=== PATIENT | female | born 1940 | race American Indian/Alaskan Native ===

== ENCOUNTER 2017-08-06 23:41 | Inpatient (IN) | payer MEDICARE, MEDICAID ==
[2017-08-06 23:51] VITALS: BMI 25.4
--- NOTE | 2017-08-07 00:35 | ED PDOC ---
Arrival/HPI - General Chief Complaint: Fever Time Seen by Provider: 08/07/17 00:35 Historian: Patient, Family - History of Present Illness Narrative History of Present Illness (Text): 08/07/17 00:35 76 year old female whose past medical history includes Alzheimer and dementia, presents to the emergency department from half-way associated with family member complaining of cough that began a few days ago associated with fever that began 4-6 hours ago. Patient reports she had a fever of 101.6 at the half-way. Patient denies any ear pain, sore throat, chills, chest pain, shortness of breath, nausea, vomiting, diarrhea, urinary symptoms, back pain, neck pain, headache, dizziness, or any other complaints. Time/Duration: 4-6 hours Symptom Onset: Sudden Activities at Onset: Light Context: Home ([facility]) Past Medical History - Provider Review Nursing Documentation Reviewed: Yes - Infectious Disease Hx of Infectious Diseases: None - Tetanus Immunization Tetanus Immunization: Unknown - Cardiac Hx Hypertension: Yes - Psychiatric Hx Depression: Yes Hx Emotional Abuse: No Hx Physical Abuse: No Hx Substance Use: No - Past Surgical History Past Surgical History: No Previous - Suicidal Assessment Feels Threatened In Home Enviroment: No Family/Social History - Physician Review Nursing Documentation Reviewed: Yes Family/Social History: No Known Family HX Smoking Status: Never Smoked Hx Alcohol Use: No Hx Substance Use: No Hx Substance Use Treatment: No Allergies/Home Meds Allergies/Adverse Reactions: Allergies No Known Allergies Allergy (Verified 08/07/17 11:50) Home Medications: Home Meds Medication Instructions Recorded Confirmed Acetaminophen [Tylenol 325mg tab] 2 tab PO Q4 PRN 11/11/13 08/06/17 Magnesium Hydroxide [Milk Of 30 ml PO HS PRN 11/11/13 08/06/17 Magnesia] Multivitamin [Tab-A-Dk] 1 tab PO DAILY 11/11/13 08/06/17 Alendronate Sodium [Binosto] 70 mg PO DAILY 08/07/17 08/07/17 Amlodipine Bes/Olmesartan Med 10 mg PO MON 08/07/17 08/07/17 [Cezar 5-20 mg Tablet] Calcium Carbonate [Calcium] 500 mg PO BID 08/07/17 08/07/17 Famotidine [Pepcid] 20 mg PO DAILY 08/07/17 08/07/17 Memantine HCl 5 mg PO BID 08/07/17 08/07/17 Review of Systems - Physician Review All systems were reviewed & negative as marked: Yes - Review of Systems Constitutional: Fevers. absent: Other (Chills) ENT: absent: TMJ Pain, Sore Throat Respiratory: Cough. absent: SOB Cardiovascular: absent: Chest Pain Gastrointestinal: absent: Diarrhea, Nausea, Vomiting Genitourinary Female: absent: Dysuria, Frequency, Hematuria Musculoskeletal: absent: Back Pain, Neck Pain Neurological: absent: Headache, Dizziness Physical Exam Vital Signs Reviewed: Yes Vital Signs Temp Pulse Resp BP Pulse Ox 08/07/17 08:39 99.3 F 99 H 21 123/64 96 08/07/17 06:00 101.1 F H 101 H 16 150/66 92 L 08/07/17 04:00 103 F H 114 H 16 157/69 H 95 08/07/17 02:00 99.6 F 100 H 16 140/85 92 L 08/07/17 00:01 99.3 F 103 H 20 125/67 92 L Temperature: Afebrile Blood Pressure: Normal Pulse: Tachycardic Respiratory Rate: Normal Appearance: Positive for: Well-Appearing, Non-Toxic, Comfortable Pain Distress: None Mental Status: Positive for: other (Alert and Oriented x2) - Systems Exam Head: Present: Atraumatic, Normocephalic Pupils: Present: PERRL Extroacular Muscles: Present: EOMI Conjunctiva: Present: Normal Mouth: Present: Moist Mucous Membranes Neck: Present: Normal Range of Motion Respiratory/Chest: Present: Rhonchi (scattered Rhonchi everywhere). No: Respiratory Distress, Accessory Muscle Use Cardiovascular: Present: Regular Rate and Rhythm, Normal S1, S2. No: Murmurs Abdomen: Present: Normal Bowel Sounds. No: Tenderness, Distention, Peritoneal Signs Back: Present: Normal Inspection Upper Extremity: Present: Normal Inspection. No: Cyanosis, Edema Lower Extremity: Present: Normal Inspection. No: Edema Neurological: Present: GCS=15, CN II-XII Intact, Speech Normal Skin: Present: Warm, Dry, Normal Color. No: Rashes Psychiatric: Present: Alert, Normal Insight, Normal Concentration. No: Oriented x 3 (Oriented x2) Medical Decision Making ED Course and Treatment: 08/07/17 00:35 Impression: 76 year old female presents complaining of cough that began few days ago associated with fever that began 4-6 hours ago. Plan: -- VBG -- EKG -- Labs -- Chest X-ray -- IV Fluids -- Blood Culture -- Urine Culture -- Urinalysis -- Reassess and disposition Progress Notes: 08/07/17 02:10 EKG shows Sinus Tachycardia at 109 BPM with no changes since 10/2013 Interpreted by me. 08/07/17 02:36 CXR Impression: As read by CAT bell. - Lab Interpretations Microbiology Results: Microbiology Results 08/07/17 02:30 Blood Blood Culture - Preliminary NO GROWTH AFTER 4 DAYS 08/07/17 02:00 Blood Blood Culture - Preliminary NO GROWTH AFTER 4 DAYS 08/07/17 05:08 Urine,Clean Catch Urine Culture - Final Escherichia Coli Lab Results: 08/07/17 02:30 08/07/17 02:30 Lab Results 08/07/17 05:08: Urine Color Yellow, Urine Appearance Sl cloudy, Urine pH 6.0, Ur Specific Floyd 1.025, Urine Protein Trace H, Urine Glucose (UA) Negative, Urine Ketones Negative, Urine Blood Trace-intact H, Urine Nitrate Positive H, Urine Bilirubin Negative, Urine Urobilinogen 0.2, Ur Leukocyte Esterase Negative , Urine RBC 0 - 2, Urine WBC 0 - 2, Ur Epithelial Cells 1 - 3, Urine Bacteria Many 08/07/17 04:54: Influenza Typ A,B (EIA) Pos for influenza a H 08/07/17 02:30: Sodium 137, Chloride 103, Potassium 3.4 L, Carbon Dioxide 22, Anion Gap 16, BUN 12, Creatinine 0.9, Est GFR ( Amer) > 60, Est GFR (Non- Af Amer) > 60, Random Glucose 96, Calcium 10.9 H, Phosphorus 2.4 L, Magnesium 2.0, Total Bilirubin 0.8, AST 40 H, ALT 32, Alkaline Phosphatase 94, Total Protein 8.2, Albumin 4.2, Globulin 4.1, Albumin/Globulin Ratio 1.0 L 08/07/17 02:30: pO2 53, VBG pH 7.37, VBG pCO2 43.0, VBG HCO3 24.9, VBG Total CO2 26.2, VBG O2 Sat (Calc) 89.5 H, VBG Base Excess -0.6 L, VBG Potassium 3.5 L , Sodium 137.0, Chloride 102.0, Glucose 92, Lactate 1.5, FiO2 21.0, Venous Blood Potassium 3.5 L 08/07/17 02:30: PT 13.7 H, INR 1.20 H, APTT 31.9 08/07/17 02:30: WBC 9.3, RBC 4.76, Hgb 13.7, Hct 41.3, MCV 86.8, MCH 28.8, MCHC 33.2, RDW 15.5 H, Plt Count 266, MPV 11.0, Gran % 83.5 H, Lymph % (Auto) 6.9 L, [place] % (Auto) 9.2 H, Eos % (Auto) 0.0 L, Baso % (Auto) 0.4, Gran # 7.72 H, Lymph # 0.6 L, [place] # 0.9 H, Eos # 0.0, Baso # 0.04 I have reviewed the lab results: Yes - RAD Interpretation Radiology Orders: 08/07/17 00:58 CHEST PORTABLE [RAD] Stat - EKG Interpretation Interpreted by ED Physician: Yes Type: 12 lead EKG - Medication Orders Current Medication Orders: Discontinued Medications Acetaminophen (Tylenol 325mg Tab) 650 mg PO STAT STA Stop: 08/07/17 05:01 Last Admin: 08/07/17 06:29 Dose: Acetaminophen (Tylenol 325mg Tab) 650 mg PO Q6H PRN PRN Reason: Fever >100.4 F Last Admin: 08/09/17 18:07 Dose: 650 mg BETH Pain/Vitals Document 08/09/17 18:07 MANIL (Rec: 08/09/17 18:07 MANIL [id number]) Vitals Temperature (97.6 F-99.6 F) 99.3 F Temperature Source Oral Re-Assess: [facility] Pain/Vitals Document 08/09/17 19:07 RR (Rec: 08/09/17 20:20 RR [id number]) Pain Reassessment Is This A Pain ReAssessment? Yes Sleep Is patient sleeping during reassessment? Yes Pain Scale Used Pain Scale Used FLACC Alendronate Sodium (Fosamax) 70 mg PO Q7D@0600 [facility] Calcium Carbonate (Caltrate) 600 mg PO BID [facility] Last Admin: 08/10/17 09:54 Dose: 600 mg Cephalexin Monohydrate (Keflex) 500 mg PO BID [facility] PRN Reason: Protocol Stop: 08/16/17 10:01 Famotidine (Pepcid) 20 mg PO DAILY REPLACED BY [facility] Last Admin: 08/10/17 09:55 Dose: 20 mg Sodium Chloride (Sodium Chloride 0.9%) 1,000 mls @ 2,000 mls/hr IV .Q30M ONE Stop: 08/07/17 01:26 Last Admin: 08/07/17 01:00 Dose: 2,000 mls/hr eMAR Start Stop Document 08/07/17 01:00 AB (Rec: 08/07/17 02:44 AB [facility] [place]-[id number]) Intravenous Solution Start Date 08/07/17 Start Time 01:00 Sodium Chloride (Sodium Chloride 0.9%) 1,000 mls @ 150 mls/hr IV .Q6H40M REPLACED BY [facility] Last Admin: 08/09/17 19:52 Dose: 150 mls/hr eMAR Start Stop Document 08/09/17 19:52 MANIL (Rec: 08/09/17 19:53 MANIL [id number]) Intravenous Solution Start Date 08/09/17 Start Time 19:52 End Date 08/10/17 Ceftriaxone Sodium (Rocephin 1 Gram Ivpb) 1 gm in 100 mls @ 200 mls/hr IVPB STAT STA PRN Reason: Protocol Stop: 08/07/17 07:07 Last Admin: 08/07/17 08:08 Dose: 200 mls/hr eMAR Start Stop Document 08/07/17 08:08 LA (Rec: 08/07/17 08:08 LA [id number]) Intravenous Solution Start Date 08/07/17 Start Time 08:08 End Date 08/07/17 End time 08:38 Total Infusion Time 30 Ceftriaxone Sodium (Rocephin 1 Gram Ivpb) 1 gm in 100 mls @ 100 mls/hr IVPB DAILY [facility] PRN Reason: Protocol Last Admin: 08/09/17 10:33 Dose: 100 mls/hr eMAR Start Stop Document 08/09/17 10:33 MANIL (Rec: 08/09/17 10:33 MANIL [id number]) Intravenous Solution Start Date 08/09/17 Start Time 10:33 End Date 08/09/17 End time 11:33 Total Infusion Time 60 Cefepime HCl (Maxipime 1gm) 1 gm in 100 mls @ 100 mls/hr IVPB Q12 [facility] PRN Reason: Protocol Last Admin: 08/10/17 09:55 Dose: 100 mls/hr eMAR Start Stop Document 08/10/17 09:55 LO (Rec: 08/10/17 09:55 LO [id number]) Intravenous Solution Start Date 08/10/17 Start Time 09:55 Magnesium Hydroxide (Milk Of Magnesia) 30 ml PO HS PRN PRN Reason: Constipation Memantine (Namenda) 5 mg PO DAILY [facility] Last Admin: 08/10/17 09:55 Dose: 5 mg Multivitamins (Thera Tab) 1 tab PO 0800 [facility] Last Admin: 08/10/17 09:55 Dose: 1 tab Oseltamivir Phosphate (Tamiflu Cap) 75 mg PO ONCE ONE PRN Reason: Protocol Stop: 08/07/17 06:35 Last Admin: 08/07/17 07:09 Dose: 75 mg Oseltamivir Phosphate (Tamiflu Cap) 75 mg PO BID [facility] PRN Reason: Protocol Stop: 08/12/17 16:12 Last Admin: 08/10/17 09:55 Dose: 75 mg Pneumococcal Polyvalent Vaccine (Pneumovax 23 Vaccine) 0.5 ml IM .ONCE ONE Stop: 08/07/17 14:15 Potassium Chloride (K-Dur 20 Meq Er Tab) 20 meq PO DAILY REPLACED BY [facility] Potassium Chloride (K-Dur 20 Meq Er Tab) 20 meq PO ONCE ONE Stop: 08/07/17 18:40 Last Admin: 08/07/17 18:44 Dose: 20 meq Potassium Chloride (K-Dur 20 Meq Er Tab) 20 meq PO BRK REPLACED BY [facility] Last Admin: 08/10/17 08:55 Dose: 20 meq - Scribe Statement The provider has reviewed the documentation as recorded by the [place] [facility] Provider Osvaldoibe Attestation: All medical record entries made by the Osvaldoibmonica were at my direction and personally dictated by me. I have reviewed the chart and agree that the record accurately reflects my personal performance of the history, physical exam, medical decision making, and the department course for this patient. I have also personally directed, reviewed, and agree with the discharge instructions and disposition. Disposition/Present on Arrival - Present on Arrival Any Indicators Present on Arrival: No History of DVT/PE: No History of Uncontrolled Diabetes: No Urinary Catheter: No History of Decub. Ulcer: No History Surgical Site Infection Following: None - Disposition Have Diagnosis and Disposition been Completed?: Yes Diagnosis: Influenza A, UTI (urinary tract infection) Disposition: HOSPITALIZED Disposition Time: 06:40 (Dr. Refugio SEQUEIRA) Patient Plan: Admission Condition: GOOD
[2017-08-07] MEDS ORDERED: Sodium Chloride 0.9% 1,000 ML IV ONE (00:57)
[2017-08-07] MEDS: Sodium Chloride 0.9% 1,000 ML IV SCH ×3 (02:44→22:51)
[2017-08-07 02:51] LABS: BASO # 0.04 K/mm3 (0.0-2.0); BASO % 0.4 % (0.0-3.0); GRAN # 7.72 (1.4-6.5); GRAN % 83.5 % (50.0-68.0); HEMOGLOBIN 13.7 g/dL (12.0-16.0); LYMPH # 0.6 (1.2-3.4); LYMPH % 6.9 % (22.0-35.0); MEAN CELL VOLUME 86.8 fl (80.0-105.0); MEAN CORPUSCULAR HEMOGLOBIN 28.8 pg (25.0-35.0); MEAN CORPUSCULAR HGB CONC 33.2 g/dl (31.0-37.0); MONO # 0.9 (0.1-0.6); MONO % 9.2 % (1.0-6.0); RBC 4.76 10^6/uL (3.5-6.1); RED CELL DISTRIBUTION WIDTH 15.5 % (11.5-14.5); WHITE BLOOD COUNT 9.3 10^3/ul (4.5-11.0)
[2017-08-07 02:57] LABS: INR 1.2 (0.93-1.08); PARTIAL THROMBOPLASTIN TIME 31.9 Seconds (25.1-36.5); PROTHROMBIN TIME 13.7 SECONDS (9.4-12.5)
[2017-08-07 03:00] LABS: ALBUMIN 4.2 g/dL (3.0-4.8); ALT/SGPT 32 U/L (7-56); AST/SGOT 40 U/L (14-36); BLOOD UREA NITROGEN 12 mg/dL (7-21); CALCIUM 10.9 mg/dL (8.4-10.5); GFR AFRICAN-AMERICAN > 60; GFR NON-AFRICAN AMERICAN > 60
[2017-08-07 03:30] LABS: VENOUS BLOOD GAS BASE EXCESS -0.6 mmol/L (0.0-2.0); VENOUS BLOOD GAS PO2 53 mm/Hg (30-55); VENOUS BLOOD PH 7.37 (7.32-7.43)
[2017-08-07 05:56] LABS: URINE BILIRUBIN NEGATIVE (NEGATIVE); URINE BLOOD TRACE-INTACT (NEGATIVE); URINE GLUCOSE (UA) NEGATIVE (NEGATIVE); URINE LEUKOCYTE ESTERASE NEGATIVE Leu/uL (NEGATIVE); URINE NITRATE POSITIVE (NEGATIVE); URINE PROTEIN TRACE mg/dL (<30 mg/dL); URINE UROBILINOGEN 0.2 E.U./dL (<1 E.U./dL)
[2017-08-07 06:15] LABS: URINE APPEARANCE SL CLOUDY (CLEAR); URINE COLOR YELLOW (YELLOW)
[2017-08-07 06:16] LABS: URINE RBC 0 - 2 /hpf (0-2); URINE WBC 0 - 2 /hpf (0-6)
[2017-08-07 06:17] LABS: URINE BACTERIA MANY (NEG)
[2017-08-07] MEDS ORDERED: cefTRIAXone 1 gm 1 GM/100 ML BAG IVPB STA (06:38)
--- NOTE | 2017-08-07 09:59 | RAD ---
HISTORY: Sepsis patient. Portable study 01:29 COMPARISON: No prior. FINDINGS: LUNGS: No active pulmonary disease. PLEURA: No significant pleural effusion identified, no pneumothorax apparent. CARDIOVASCULAR: No radiographic findings to suggest acute or significant cardiovascular disease. OSSEOUS STRUCTURES: No significant abnormalities. VISUALIZED UPPER ABDOMEN: Normal. OTHER FINDINGS: None. IMPRESSION: No active disease.
--- NOTE | 2017-08-07 12:46 | CP.PCM.HP ---
<Valorie Peralta - Last Filed: 08/07/17 23:04> History of Present Illness - History of Present Illness History of Present Illness: 76 yr female from [facility] w/ history of Paranoid Schizophrenia, Dementia, Osteoporosis, GERD, HTN, Osteoarthritis, DJD, Onychomycosis, PVD, and cataracts. Pt was sent to ED for cough that began a few days ago and fever. Temperature of 101.6 at the half-way. Patient denies any ear pain, sore throat, chills, chest pain, shortness of breath, nausea, vomiting, diarrhea, urinary symptoms, back pain, neck pain, headache, dizziness , or any other complaints. Present on Admission - Present on Admission Any Indicators Present on Admission: No History of DVT/PE: No History of Uncontrolled Diabetes: No Urinary Catheter: No Decubitus Ulcer Present: No Review of Systems - Review of Systems Systems not reviewed;Unavailable: Dementia - Constitutional Constitutional: As Per HPI - EENT Eyes: As Per HPI Ears: As Per HPI Nose/Mouth/Throat: As Per HPI - Breasts Breasts: As Per HPI - Cardiovascular Cardiovascular: As Per HPI - Respiratory Respiratory: As Per HPI - Gastrointestinal Gastrointestinal: As Per HPI - Genitourinary Genitourinary: As Per HPI - Menstruation Menstruation: As Per HPI - Musculoskeletal Musculoskeletal: As Per HPI - Integumentary Integumentary: As Per HPI - Neurological Neurological: As Per HPI - Psychiatric Psychiatric: As Per HPI - Endocrine Endocrine: As Per HPI - Hematologic/Lymphatic Hematologic: As Per HPI Past Patient History - Infectious Disease Hx of Infectious Diseases: None - Tetanus Immunizations Tetanus Immunization: Unknown - Past Medical History & Family History Past Family History: Reviewed and not pertinent - Past Social History Smoking Status: Never Smoked - CARDIAC Hx Hypertension: Yes - PSYCHIATRIC Hx Depression: Yes Hx Emotional Abuse: No Hx Physical Abuse: No Hx Substance Use: No Meds Allergies/Adverse Reactions: Allergies Allergy/AdvReac Type Severity Reaction Status Date / Time No Known Allergies Allergy Verified 08/07/17 11:50 Physical Exam - Constitutional Appears: Chronically Ill - Head Exam Head Exam: ATRAUMATIC, NORMAL INSPECTION, NORMOCEPHALIC - Eye Exam Eye Exam: EOMI, Normal appearance, PERRL - ENT Exam ENT Exam: Mucous Membranes Dry - Neck Exam Neck exam: Positive for: Normal Inspection - Respiratory Exam Respiratory Exam: Clear to Auscultation Bilateral, NORMAL BREATHING PATTERN - Cardiovascular Exam Cardiovascular Exam: REGULAR RHYTHM - GI/Abdominal Exam GI & Abdominal Exam: Normal Bowel Sounds, Soft. absent: Tenderness - Extremities Exam Extremities exam: Positive for: normal inspection - Back Exam Back exam: NORMAL INSPECTION - Neurological Exam Neurological exam: Alert, Oriented x3 - Psychiatric Exam Psychiatric exam: Normal Affect, Normal Mood - Skin Skin Exam: Dry, Intact, Normal Color, Warm Results - Vital Signs Recent Vital Signs: Last Vital Signs Temp 99.3 F 08/07/17 08:39 Pulse 99 H 08/07/17 08:39 Resp 21 08/07/17 08:39 BP 123/64 08/07/17 08:39 Pulse Ox 96 08/07/17 08:39 - Labs Result Diagrams: 08/07/17 02:30 08/07/17 02:30 Assessment & Plan (1) Hypokalemia Status: Acute (2) Hypercalcemia Status: Acute (3) Abnormal LFTs (liver function tests) Status: Acute (4) Proteinuria Status: Acute (5) Influenza A Status: Acute (6) UTI (urinary tract infection) Status: Acute (7) Hypophosphatemia Status: Acute - Assessment and Plan (Free Text) Plan: Isolation Precautions in place. Labs: CBC, BMP. PT/OT, social welfare administrator on board. GI/VTE prophlyaxis. IV abx rochephin. IV antiviral tamiflu. Blood cultures final results pending. Consult: ID - Dr. Velazquez = Influenza A positive. Started on Tamiflu. Requires 5 days of Tamiflu treatment. For UTI, Rocephin 1gm IV daily until culture results return. Reviewed: CXR = WNL ECG = ST, possible L atrial enlargement, BORDERLINE ECG - Date & Time Date: 08/07/17 Time: 11:40 <Asuncion Rob - Last Filed: 08/08/17 15:07> Results - Vital Signs Recent Vital Signs: Last Vital Signs Temp 99.2 F 08/08/17 08:04 Pulse 85 08/08/17 08:04 Resp 20 08/08/17 08:04 BP 100/56 L 08/08/17 08:04 Pulse Ox 94 L 08/08/17 08:04 - Labs Result Diagrams: 08/07/17 02:30 08/07/17 02:30 Assessment & Plan - Assessment and Plan (Free Text) Plan: 76 yr female from [facility] w/ history of Paranoid Schizophrenia, Dementia, Osteoporosis, GERD, HTN, Osteoarthritis, DJD, Onychomycosis, PVD, and cataracts. Pt was sent to ED for cough that began a few days ago and fever. Temperature of 101.6 at the half-way. Patient denies any ear pain, sore throat, chills, chest pain, shortness of breath, nausea, vomiting, diarrhea, urinary symptoms, back pain, neck pain, headache, dizziness , or any other complaints.this is our private pt from [facility] , all above noted , agreed all above , chart noted . agreed with above treatment
[2017-08-07] MEDS ORDERED: Pneumococcal 23-Valent Vaccine IM ONE (14:14)
[2017-08-07] MEDS ORDERED: Influenza Vaccine 60 mcg/0.5 mL SYR (4YR UP) IM ONE (14:14)
[2017-08-07] MEDS ORDERED: Potassium Chloride 20 mEq ER Tab PO ONE (18:39)
--- NOTE | 2017-08-07 19:04 | CP.PCM.CON ---
History of Present Illness - History of Present Illness History of Present Illness: Infectious Disease Consultation: August 07, 2017 76 yo female with cough and fever at intermediate. Fever as high as 101.6 F at intermediate. Fever of 103.0 F here at [facility]. Patient tested positive for Influenza A. Started on Tamiflu for treatment at this time. The patient placed under respiratory isolation. Patient does have a history of Dementia and Alzheimer's. PMHx: Paranoid Schizophrenia, Dementia, Osteoporosis, GERDs, HTN, Osteoarthritis, DJD , Onychomycosis, PVD, Cataracts. PSHx: none given Allergies: NKDA Social Hx: No tobacco, EtOH, or illicit drug use [facility] resident at [facility]. Active Medications Acetaminophen (Tylenol 325mg Tab) 650 mg PO Q6H PRN PRN Reason: Fever >100.4 F Last Admin: 08/07/17 16:58 Dose: 650 mg Alendronate Sodium (Fosamax) 70 mg PO Q7D@0600 [facility] Calcium Carbonate (Caltrate) 600 mg PO BID [facility] Last Admin: 08/07/17 17:00 Dose: 600 mg Famotidine (Pepcid) 20 mg PO DAILY [facility] Sodium Chloride (Sodium Chloride 0.9%) 1,000 mls @ 150 mls/hr IV .Q6H40M [facility] Last Admin: 08/07/17 09:11 Dose: 150 mls/hr Magnesium Hydroxide (Milk Of Magnesia) 30 ml PO HS PRN PRN Reason: Constipation Memantine (Namenda) 5 mg PO DAILY [facility] Multivitamins (Thera Tab) 1 tab PO 0800 [facility] Oseltamivir Phosphate (Tamiflu Cap) 75 mg PO BID [facility] PRN Reason: Protocol Stop: 08/12/17 16:12 Last Admin: 08/07/17 17:00 Dose: 75 mg Potassium Chloride (K-Dur 20 Meq Er Tab) 20 meq PO DAILY [facility] Family Hx: none given ROS: Fevers, chills, cough No chest pain, abdominal pain, melena, hematuria, hematemesis, hematochezia, depression, anxiety. Most information taken from chart and intermediate records. Past Patient History - Infectious Disease Hx of Infectious Diseases: None - Tetanus Immunizations Tetanus Immunization: Unknown - Past Social History Smoking Status: Former Smoker - CARDIAC Hx Cardiac Disorders: Yes Hx Hypertension: Yes - PULMONARY Hx Respiratory Disorders: Yes (INFLUENZA A 1-8-18,H/O OF SMOKING CIGARETTES.) - NEUROLOGICAL Hx Neurological Disorder: Yes Hx Dementia: Yes (ALZHEIMER'S) - HEENT Hx HEENT Problems: No - RENAL Hx Chronic Kidney Disease: No - ENDOCRINE/METABOLIC Hx Endocrine Disorders: No - HEMATOLOGICAL/ONCOLOGICAL Hx Blood Disorders: No - INTEGUMENTARY Hx Dermatological Problems: No - MUSCULOSKELETAL/RHEUMATOLOGICAL Hx Musculoskeletal Disorders: Yes Hx Degenerative Joint Disease: Yes Hx Falls: No (NONE NOTED.) Hx Osteoarthritis: Yes Hx Unsteady Gait: Yes (WALKER WHEELCHAIR) - GASTROINTESTINAL Hx Gastrointestinal Disorders: Yes (ESOPHAGITIS,APPENDECTOMY) Hx Gastroesophageal Reflux: Yes - GENITOURINARY/GYNECOLOGICAL Hx Genitourinary Disorders: No Hx Urinary Tract Infection: Yes - PSYCHIATRIC Hx Psychophysiologic Disorder: Yes Hx Depression: Yes Hx Emotional Abuse: No Hx Physical Abuse: No Hx Substance Use: No - SURGICAL HISTORY Hx Surgeries: Yes Hx Appendectomy: Yes Meds Allergies/Adverse Reactions: Allergies Allergy/AdvReac Type Severity Reaction Status Date / Time No Known Allergies Allergy Verified 08/07/17 11:50 - Medications Medications: Current Medications Acetaminophen (Tylenol 325mg Tab) 650 mg PO Q6H PRN PRN Reason: Fever >100.4 F Last Admin: 08/07/17 16:58 Dose: 650 mg Alendronate Sodium (Fosamax) 70 mg PO Q7D@0600 [facility] Calcium Carbonate (Caltrate) 600 mg PO BID [facility] Last Admin: 08/07/17 17:00 Dose: 600 mg Famotidine (Pepcid) 20 mg PO DAILY [facility] Sodium Chloride (Sodium Chloride 0.9%) 1,000 mls @ 150 mls/hr IV .Q6H40M [facility] Last Admin: 08/07/17 09:11 Dose: 150 mls/hr Magnesium Hydroxide (Milk Of Magnesia) 30 ml PO HS PRN PRN Reason: Constipation Memantine (Namenda) 5 mg PO DAILY [facility] Multivitamins (Thera Tab) 1 tab PO 0800 [facility] Oseltamivir Phosphate (Tamiflu Cap) 75 mg PO BID [facility] PRN Reason: Protocol Stop: 08/12/17 16:12 Last Admin: 08/07/17 17:00 Dose: 75 mg Physical Exam - Constitutional Appears: Non-toxic, No Acute Distress, Chronically Ill - Head Exam Head Exam: ATRAUMATIC, NORMOCEPHALIC - Eye Exam Eye Exam: EOMI, PERRL Pupil Exam: NORMAL ACCOMODATION - ENT Exam ENT Exam: Mucous Membranes Moist, Normal External Ear Exam, TM's Normal Bilaterally - Neck Exam Neck exam: Positive for: Full Rom, Normal Inspection - Respiratory Exam Respiratory Exam: Clear to Auscultation Bilateral, NORMAL BREATHING PATTERN. absent: Rales, Rhonchi, Wheezes - Cardiovascular Exam Cardiovascular Exam: REGULAR RHYTHM, RRR, +S1, +S2 - GI/Abdominal Exam GI & Abdominal Exam: Normal Bowel Sounds, Soft. absent: Distended, Tenderness - Extremities Exam Extremities exam: Positive for: normal inspection. Negative for: joint swelling , pedal edema - Neurological Exam Neurological exam: Alert, CN II-XII Intact Additional comments: AAO x 2-3 - Psychiatric Exam Psychiatric exam: Normal Affect, Normal Mood - Skin Skin Exam: Intact, Normal Color Results - Vital Signs Recent Vital Signs: Last Vital Signs Temp 101.7 F H 08/07/17 18:18 Pulse 99 H 08/07/17 13:49 Resp 21 08/07/17 13:49 BP 123/64 08/07/17 13:49 Pulse Ox 96 08/07/17 08:39 - Labs Result Diagrams: 08/07/17 02:30 08/07/17 02:30 Assessment & Plan - Assessment and Plan (Free Text) Assessment: 76 yo AA female with tachycardia, SOB, fevers up to 103 F. Patient was found to be Influenza A positive. Started on Tamiflu. Requires 5 days of Tamiflu treatment. Question of UTI and awaiting urine culture results. Will continue Rocephin 1gm IV daily until culture results return. Supportive care. Thank you for allowing me to participate in the care of the patient, we will follow with you.
--- NOTE | 2017-08-07 20:45 | CARD ---
APPROVED REPORT EKG Measurement Heart [id number] <Conclusion> Sinus tachycardia Possible Left atrial enlargement Borderline ECG
[2017-08-07] MEDS ORDERED: Magnesium Hydroxide Susp 30 ml UD PO PRN (22:00)
[2017-08-08] MEDS: Sodium Chloride 0.9% 1,000 ML IV SCH ×2 (01:23→16:33)
[2017-08-08] MEDS: Multivitamin Therapeutic Tab PO SCH (10:24)
[2017-08-08] MEDS: Potassium Chloride 20 mEq ER Tab PO SCH (10:25)
[2017-08-08] MEDS: cefTRIAXone 1 gm 1 GM/100 ML BAG IVPB SCH (10:25)
--- NOTE | 2017-08-08 16:34 | CP.PCM.PN ---
Subjective - Date & Time of Evaluation Date of Evaluation: 08/08/17 Time of Evaluation: 15:00 - Subjective Subjective: Infectious Disease Follow Up: August 08, 2017 76 yo female with cough and fever at [facility]. Fever as high as 101.6 F at [facility]. Fever of 103.0 F here at [facility] [place]. Patient tested positive for Influenza A. Started on Tamiflu for treatment at this time. The patient placed under respiratory isolation. Patient does have a history of Dementia and Alzheimer's. Patient temperature has downtrended to 100.1 F this morning. Objective - Vital Signs/Intake and Output Vital Signs (last 24 hours): Temp Pulse Resp BP Pulse Ox 99.2 F 85 20 100/56 L 94 L 08/08/17 08:04 08/08/17 08:04 08/08/17 08:04 08/08/17 08:04 08/08/17 08:04 Intake and Output: 08/08/17 08/08/17 06:59 18:59 Intake Total 0 300 Output Total 2 Balance -2 300 - Medications Medications: Current Medications Acetaminophen (Tylenol 325mg Tab) 650 mg PO Q6H PRN PRN Reason: Fever >100.4 F Last Admin: 08/08/17 05:29 Dose: 650 mg Alendronate Sodium (Fosamax) 70 mg PO Q7D@0600 [facility] Calcium Carbonate (Caltrate) 600 mg PO BID [facility] Last Admin: 08/08/17 10:24 Dose: 600 mg Famotidine (Pepcid) 20 mg PO DAILY [facility] Last Admin: 08/08/17 10:24 Dose: 20 mg Sodium Chloride (Sodium Chloride 0.9%) 1,000 mls @ 150 mls/hr IV .Q6H40M [facility] Last Admin: 08/08/17 01:23 Dose: 150 mls/hr Ceftriaxone Sodium (Rocephin 1 Gram Ivpb) 1 gm in 100 mls @ 100 mls/hr IVPB DAILY [facility] PRN Reason: Protocol Last Admin: 08/08/17 10:25 Dose: 100 mls/hr Magnesium Hydroxide (Milk Of Magnesia) 30 ml PO HS PRN PRN Reason: Constipation Memantine (Namenda) 5 mg PO DAILY [facility] Last Admin: 08/08/17 10:24 Dose: 5 mg Multivitamins (Thera Tab) 1 tab PO 0800 [facility] Last Admin: 08/08/17 10:24 Dose: 1 tab Oseltamivir Phosphate (Tamiflu Cap) 75 mg PO BID [facility] PRN Reason: Protocol Stop: 08/12/17 16:12 Last Admin: 08/08/17 10:24 Dose: 75 mg Potassium Chloride (K-Dur 20 Meq Er Tab) 20 meq PO BRK [facility] Last Admin: 08/08/17 10:25 Dose: 20 meq - Labs Labs: PT 13.7 SECONDS (9.4-12.5) H 08/07/17 02:30 INR 1.20 (0.93-1.08) H 08/07/17 02:30 APTT 31.9 Seconds (25.1-36.5) 08/07/17 02:30 - Constitutional Appears: Non-toxic, No Acute Distress, Chronically Ill - Head Exam Head Exam: ATRAUMATIC, NORMOCEPHALIC - Eye Exam Eye Exam: EOMI, PERRL Pupil Exam: NORMAL ACCOMODATION, PERRL - ENT Exam ENT Exam: Mucous Membranes Moist, Normal External Ear Exam, TM's Normal Bilaterally - Neck Exam Neck Exam: Full ROM, Normal Inspection - Respiratory Exam Respiratory Exam: Clear to Ausculation Bilateral, NORMAL BREATHING PATTERN. absent: Rales, Rhonchi, Wheezes - Cardiovascular Exam Cardiovascular Exam: REGULAR RHYTHM, RRR, +S1, +S2 - GI/Abdominal Exam GI & Abdominal Exam: Soft, Normal Bowel Sounds. absent: Distended, Tenderness - Extremities Exam Extremities Exam: Normal Inspection. absent: Joint Swelling, Pedal Edema - Neurological Exam Neurological Exam: Alert, Awake, CN II-XII Intact Additional comments: AAO x 2-3 - Psychiatric Exam Psychiatric exam: Normal Affect, Normal Mood - Skin Skin Exam: Intact, Normal Color Assessment and Plan - Assessment and Plan (Free Text) Assessment: 76 yo AA female with tachycardia, SOB, fevers up to 103 F. Patient was found to be Influenza A positive. Started on Tamiflu. Requires 5 days of Tamiflu treatment. Question of UTI and awaiting urine culture results. Will continue Rocephin 1gm IV daily until culture results return. Supportive care. Fevers downtrending. Awaiting urine culture results. Urine cultures are showing a gram negative tram. On Rocephin. Thank you for allowing me to participate in the care of the patient, we will follow with you.
--- NOTE | 2017-08-08 23:18 | PN ---
DATE: SUBJECTIVE: The patient is 76-year-old female. The patient was seen and examined on the bedside. She has isolation. Still coughing with fever. She has history of fever of 101.6, at the [facility] it was 103. The patient has brought here for influenza A, starting on Tamiflu for treatment at this time. The patient is on respiratory isolation. Right now, no fever and no chills. Cough is little bit better. No nausea or vomiting. The patient has dementia, she is not able to give review of system. PHYSICAL EXAMINATION: VITAL SIGNS: Temperature of 97.2, pulse of 85, respiratory rate of 20, blood pressure of 100/56, and pulse oxymetry of 94%. HEENT: Head is normocephalic and atraumatic. Eyes: PERRLA. Extraocular muscles are intact. Conjunctivae are clear. Nose is patent. Mucous membranes are moist. NECK: Supple. No carotid bruit. No JVD or thyromegaly. CHEST: Bilaterally symmetrical. HEART: S1 and S2 positive. LUNGS: Clear to auscultation. ABDOMEN: Soft. Bowel sounds positive. No organomegaly. EXTREMITIES: No edema. No cyanosis. NEUROLOGIC: The patient is awake, alert, and moving all four extremities. No focal deficits. MEDICATIONS: Tylenol, Fosamax, Caltrate, Pepcid, Rocephin, milk of magnesia, Namenda, multivitamins, Tamiflu, and potassium. LABORATORY DATA: INR is 1.20, PT is 13.7, and PTT is 31.9. I do not have her recent labs today, but reviewed old labs. ASSESSMENT AND PLAN: Ms. Italia Avery is a 76-year-old lady with tachycardia, shortness of breath and fever up to 103, has influenza A positive, started on Tamiflu, requiring 5 days of Tamiflu treatment, questionably urinary tract infection, waiting for urine culture results and continue Rocephin. The patient has history of schizophrenia, paranoid, osteoporosis, gastroesophageal reflux disease, hypertension, osteoarthritis, degenerative joint disease, history of onychomycosis, peripheral vascular disease, and history of cataract surgery. We will continue present treatment as per Infectious Diseases. We will follow. Asuncion Rob MD [facility] # [id number]
[2017-08-09] MEDS: Sodium Chloride 0.9% 1,000 ML IV SCH ×3 (03:52→19:52)
[2017-08-09 06:23] LABS: HEMOGLOBIN 12.4 g/dL (12.0-16.0); MEAN CELL VOLUME 85.4 fl (80.0-105.0); MEAN CORPUSCULAR HEMOGLOBIN 27.9 pg (25.0-35.0); MEAN CORPUSCULAR HGB CONC 32.7 g/dl (31.0-37.0); MEAN PLATELET VOLUME 10.6 fl (7.0-11.0); RBC 4.44 10^6/uL (3.5-6.1); RED CELL DISTRIBUTION WIDTH 15.5 % (11.5-14.5); WHITE BLOOD COUNT 4.2 10^3/ul (4.5-11.0)
[2017-08-09 06:36] LABS: IRON 20 ug/dL (45-180)
[2017-08-09 06:48] LABS: ALB/GLOB RATIO 1.1 (1.1-1.8); ALBUMIN 3.4 g/dL (3.0-4.8); ALT/SGPT 30 U/L (7-56); AST/SGOT 46 U/L (14-36); BLOOD UREA NITROGEN 6 mg/dL (7-21); CALCIUM 9.8 mg/dL (8.4-10.5); GFR AFRICAN-AMERICAN > 60; GFR NON-AFRICAN AMERICAN > 60; HDL CHOLESTEROL 26 mg/dL (29-60)
[2017-08-09 06:51] LABS: LDL CHOLESTEROL 75 mg/dL (0-129)
[2017-08-09 07:02] LABS: TOTAL IRON BINDING CAPACITY 249 ug/dL (265-497)
[2017-08-09 07:06] LABS: % IRON SATURATION 8 % (20-55)
[2017-08-09] MEDS: Potassium Chloride 20 mEq ER Tab PO SCH (09:30)
[2017-08-09] MEDS: Multivitamin Therapeutic Tab PO SCH (09:32)
[2017-08-09] MEDS ORDERED: Potassium Chloride 20 mEq ER Tab PO SCH (10:00)
[2017-08-09] MEDS: cefTRIAXone 1 gm 1 GM/100 ML BAG IVPB SCH (10:33)
[2017-08-09 13:58] LABS: FOLATE 14.4 ng/mL
--- NOTE | 2017-08-09 14:56 | CP.PCM.PN ---
Subjective - Date & Time of Evaluation Date of Evaluation: 08/09/17 Time of Evaluation: 13:15 - Subjective Subjective: Infectious Disease Follow Up: August 09, 2017 76 yo female with cough and fever at [facility]. Fever as high as 101.6 F at [facility]. Fever of 103.0 F here at [facility] [place]. Patient tested positive for Influenza A. Started on Tamiflu for treatment at this time. The patient placed under respiratory isolation. Patient does have a history of Dementia and Alzheimer's. Patient temperature of 100.9 F today. Urine cultures with E. coli growth sensitive to Cefepime but resistant to base PCN and Fluoroquinolones. Still low grade fevers today. UTI with E. coli. On Rocephin currently. Objective - Vital Signs/Intake and Output Vital Signs (last 24 hours): Temp Pulse Resp BP Pulse Ox 100.3 F H 88 18 136/75 95 08/09/17 10:00 08/09/17 10:00 08/09/17 10:00 08/09/17 10:00 08/09/17 10:00 Intake and Output: 08/09/17 08/09/17 06:59 18:59 Intake Total 2100 Balance 2100 - Medications Medications: Current Medications Acetaminophen (Tylenol 325mg Tab) 650 mg PO Q6H PRN PRN Reason: Fever >100.4 F Last Admin: 08/09/17 06:25 Dose: 650 mg Alendronate Sodium (Fosamax) 70 mg PO Q7D@0600 [facility] Calcium Carbonate (Caltrate) 600 mg PO BID [facility] Last Admin: 08/09/17 10:32 Dose: 600 mg Famotidine (Pepcid) 20 mg PO DAILY [facility] Last Admin: 08/09/17 10:32 Dose: 20 mg Sodium Chloride (Sodium Chloride 0.9%) 1,000 mls @ 150 mls/hr IV .Q6H40M [facility] Last Admin: 08/09/17 03:52 Dose: 150 mls/hr Ceftriaxone Sodium (Rocephin 1 Gram Ivpb) 1 gm in 100 mls @ 100 mls/hr IVPB DAILY [facility] PRN Reason: Protocol Last Admin: 08/09/17 10:33 Dose: 100 mls/hr Magnesium Hydroxide (Milk Of Magnesia) 30 ml PO PRN PRN Reason: Constipation Memantine (Namenda) 5 mg PO DAILY [facility] Last Admin: 08/09/17 10:32 Dose: 5 mg Multivitamins (Thera Tab) 1 tab PO 0800 [facility] Last Admin: 08/09/17 09:32 Dose: 1 tab Oseltamivir Phosphate (Tamiflu Cap) 75 mg PO BID [facility] PRN Reason: Protocol Stop: 08/12/17 16:12 Last Admin: 08/09/17 10:32 Dose: 75 mg Potassium Chloride (K-Dur 20 Meq Er Tab) 20 meq PO BRK [facility] Last Admin: 08/09/17 09:30 Dose: 20 meq - Labs Labs: 08/09/17 06:00 08/09/17 06:00 PT 13.7 SECONDS (9.4-12.5) H 08/07/17 02:30 INR 1.20 (0.93-1.08) H 08/07/17 02:30 APTT 31.9 Seconds (25.1-36.5) 08/07/17 02:30 - Constitutional Appears: Non-toxic, No Acute Distress, Chronically Ill - Head Exam Head Exam: ATRAUMATIC, NORMOCEPHALIC - Eye Exam Eye Exam: EOMI, PERRL Pupil Exam: NORMAL ACCOMODATION, PERRL - ENT Exam ENT Exam: Mucous Membranes Moist, Normal External Ear Exam, TM's Normal Bilaterally - Neck Exam Neck Exam: Full ROM, Normal Inspection - Respiratory Exam Respiratory Exam: Clear to Ausculation Bilateral, Respiratory Distress. absent : Rales, Rhonchi, Wheezes - Cardiovascular Exam Cardiovascular Exam: REGULAR RHYTHM, RRR, +S1, +S2 - GI/Abdominal Exam GI & Abdominal Exam: Soft, Normal Bowel Sounds. absent: Distended, Tenderness - Extremities Exam Extremities Exam: Normal Inspection. absent: Joint Swelling, Pedal Edema - Neurological Exam Neurological Exam: Alert, Awake, CN II-XII Intact Additional comments: AAO x 2-3 - Psychiatric Exam Psychiatric exam: Normal Affect, Normal Mood - Skin Skin Exam: Intact, Normal Color Assessment and Plan - Assessment and Plan (Free Text) Assessment: 76 yo AA female with tachycardia, SOB, fevers up to 103 F. Patient was found to be Influenza A positive. Started on Tamiflu. Requires 5 days of Tamiflu treatment. Question of UTI and awaiting urine culture results. E. coli growth on urine cultures. Will switch to Cefepime 1gm IV q12hrs given results. Supportive care. Fevers downtrending but still present. Urine culture results showing a gram negative tram identified as E. coli. On Rocephin. Switch Rocephin to Cefepime at this time. Thank you for allowing me to participate in the care of the patient, we will follow with you.
--- NOTE | 2017-08-09 17:44 | CP.PCM.PN ---
<Valorie Peralta - Last Filed: 08/09/17 23:27> Subjective - Date & Time of Evaluation Date of Evaluation: 08/09/17 Time of Evaluation: 11:40 - Subjective Subjective: 76 yr female from [facility] w/ history of Paranoid Schizophrenia, Dementia, Osteoporosis, GERD, HTN, Osteoarthritis, DJD, Onychomycosis, PVD, and cataracts. Pt is resting in bed and asking about her discharge home. Patient denies any ear pain, sore throat, chills, chest pain, shortness of breath, nausea, vomiting, diarrhea, urinary symptoms, back pain, neck pain, headache, dizziness, or any other complaints. Objective - Vital Signs/Intake and Output Vital Signs (last 24 hours): Temp Pulse Resp BP Pulse Ox 100.3 F H 88 18 136/75 95 08/09/17 10:00 08/09/17 10:00 08/09/17 10:00 08/09/17 10:00 08/09/17 10:00 Intake and Output: 08/09/17 08/09/17 06:59 18:59 Intake Total 2100 875 Balance 2100 875 - Medications Medications: Current Medications Acetaminophen (Tylenol 325mg Tab) 650 mg PO Q6H PRN PRN Reason: Fever >100.4 F Last Admin: 08/09/17 06:25 Dose: 650 mg Alendronate Sodium (Fosamax) 70 mg PO Q7D@0600 [facility] Calcium Carbonate (Caltrate) 600 mg PO BID [facility] Last Admin: 08/09/17 10:32 Dose: 600 mg Famotidine (Pepcid) 20 mg PO DAILY [facility] Last Admin: 08/09/17 10:32 Dose: 20 mg Sodium Chloride (Sodium Chloride 0.9%) 1,000 mls @ 150 mls/hr IV .Q6H40M [facility] Last Admin: 08/09/17 03:52 Dose: 150 mls/hr Cefepime HCl (Maxipime 1gm) 1 gm in 100 mls @ 100 mls/hr IVPB Q12 [facility] PRN Reason: Protocol Magnesium Hydroxide (Milk Of Magnesia) 30 ml PO HS PRN PRN Reason: Constipation Memantine (Namenda) 5 mg PO DAILY [facility] Last Admin: 08/09/17 10:32 Dose: 5 mg Multivitamins (Thera Tab) 1 tab PO 0800 [facility] Last Admin: 08/09/17 09:32 Dose: 1 tab Oseltamivir Phosphate (Tamiflu Cap) 75 mg PO BID [facility] PRN Reason: Protocol Stop: 08/12/17 16:12 Last Admin: 08/09/17 10:32 Dose: 75 mg Potassium Chloride (K-Dur 20 Meq Er Tab) 20 meq PO BRK [facility] Last Admin: 08/09/17 09:30 Dose: 20 meq - Labs Labs: 08/09/17 06:00 08/09/17 06:00 PT 13.7 SECONDS (9.4-12.5) H 08/07/17 02:30 INR 1.20 (0.93-1.08) H 08/07/17 02:30 APTT 31.9 Seconds (25.1-36.5) 08/07/17 02:30 - Constitutional Appears: Chronically Ill - Head Exam Head Exam: ATRAUMATIC, NORMAL INSPECTION, NORMOCEPHALIC - Eye Exam Eye Exam: EOMI, Normal appearance, PERRL Pupil Exam: NORMAL ACCOMODATION, PERRL - ENT Exam ENT Exam: Mucous Membranes Moist, Normal Exam - Neck Exam Neck Exam: Full ROM, Normal Inspection. absent: Lymphadenopathy - Respiratory Exam Respiratory Exam: Clear to Ausculation Bilateral, NORMAL BREATHING PATTERN - Cardiovascular Exam Cardiovascular Exam: REGULAR RHYTHM, +S1, +S2. absent: Murmur - GI/Abdominal Exam GI & Abdominal Exam: Soft, Normal Bowel Sounds. absent: Tenderness - Extremities Exam Extremities Exam: Full ROM, Normal Capillary Refill, Normal Inspection. absent : Joint Swelling, Pedal Edema - Back Exam Back Exam: NORMAL INSPECTION - Neurological Exam Neurological Exam: Alert, Awake - Psychiatric Exam Psychiatric exam: Flat Affect, Normal Mood - Skin Skin Exam: Dry, Intact, Normal Color, Warm Assessment and Plan (1) Hypokalemia Status: Acute (2) Hypercalcemia Status: Acute (3) Abnormal LFTs (liver function tests) Status: Acute (4) Proteinuria Status: Acute (5) Influenza A Status: Acute (6) UTI (urinary tract infection) Status: Acute (7) Hypophosphatemia Status: Acute - Assessment and Plan (Free Text) Plan: Isolation Precautions in place. Labs: CBC, BMP. PT/OT, public health social worker on board. GI/VTE prophlyaxis. IV abx cefepime. IV antiviral tamiflu. Blood cultures: Gram Negative rods, E. Coli Consult: ID - Dr. Velazquez = Influenza A positive. Started on Tamiflu. Requires 5 days of Tamiflu treatment. For UTI, cefepime Reviewed: CXR = WNL ECG = ST, possible L atrial enlargement, BORDERLINE ECG <Asuncion Rob - Last Filed: 08/10/17 08:39> Objective - Vital Signs/Intake and Output Vital Signs (last 24 hours): Temp Pulse Resp BP Pulse Ox 99.3 F 99 H 19 151/83 H 97 08/09/17 18:07 08/09/17 16:00 08/09/17 16:00 08/09/17 16:00 08/09/17 16:00 Intake and Output: 08/10/17 08/10/17 06:59 18:59 Intake Total 300 0 Balance 300 0 - Medications Medications: Current Medications Acetaminophen (Tylenol 325mg Tab) 650 mg PO Q6H PRN PRN Reason: Fever >100.4 F Last Admin: 08/09/17 18:07 Dose: 650 mg Alendronate Sodium (Fosamax) 70 mg PO Q7D@0600 [facility] Calcium Carbonate (Caltrate) 600 mg PO BID [facility] Last Admin: 08/09/17 18:07 Dose: 600 mg Famotidine (Pepcid) 20 mg PO DAILY [facility] Last Admin: 08/09/17 10:32 Dose: 20 mg Sodium Chloride (Sodium Chloride 0.9%) 1,000 mls @ 150 mls/hr IV .Q6H40M [facility] Last Admin: 08/09/17 19:52 Dose: 150 mls/hr Cefepime HCl (Maxipime 1gm) 1 gm in 100 mls @ 100 mls/hr IVPB Q12 [facility] PRN Reason: Protocol Last Admin: 08/09/17 22:20 Dose: 100 mls/hr Magnesium Hydroxide (Milk Of Magnesia) 30 ml PO HS PRN PRN Reason: Constipation Memantine (Namenda) 5 mg PO DAILY [facility] Last Admin: 08/09/17 10:32 Dose: 5 mg Multivitamins (Thera Tab) 1 tab PO 0800 [facility] Last Admin: 08/09/17 09:32 Dose: 1 tab Oseltamivir Phosphate (Tamiflu Cap) 75 mg PO BID [facility] PRN Reason: Protocol Stop: 08/12/17 16:12 Last Admin: 08/09/17 18:07 Dose: 75 mg Potassium Chloride (K-Dur 20 Meq Er Tab) 20 meq PO BRK [facility] Last Admin: 08/09/17 09:30 Dose: 20 meq - Labs Labs: 08/09/17 06:00 08/09/17 06:00 PT 13.7 SECONDS (9.4-12.5) H 08/07/17 02:30 INR 1.20 (0.93-1.08) H 08/07/17 02:30 APTT 31.9 Seconds (25.1-36.5) 08/07/17 02:30 Assessment and Plan - Assessment and Plan (Free Text) Plan: 76 yr female from [facility] w/ history of Paranoid Schizophrenia, Dementia, Osteoporosis, GERD, HTN, Osteoarthritis, DJD, Onychomycosis, PVD, and cataracts. Pt is resting in bed and asking about her discharge home. Patient denies any ear pain, sore throat, chills, chest pain, shortness of breath, nausea, vomiting, diarrhea, urinary symptoms, back pain, neck pain, headache, dizziness, or any other complaints. pt is seen and examined at bed side , looking comfortable , pt had flu , is on isolation , d/d with pts sister , staff and [employer] TECHNICIAN . agreed all above . cont. same treatment , meds as per id , will f/u
[2017-08-09] MEDS: Cefepime 1gm in NS 100ml 1 GM/100 ML BAG IVPB SCH (22:20)
[2017-08-10] MEDS: Potassium Chloride 20 mEq ER Tab PO SCH (08:55)
[2017-08-10 08:57] VITALS: BP 138/81; PULSE 87; RESP 20; TEMP 98.8; O2SAT 98
[2017-08-10] MEDS: Cefepime 1gm in NS 100ml 1 GM/100 ML BAG IVPB SCH (09:55)
[2017-08-10] MEDS: Multivitamin Therapeutic Tab PO SCH (09:55)
--- NOTE | 2017-08-10 14:10 | CP.PCM.PN ---
Subjective - Date & Time of Evaluation Date of Evaluation: 08/10/17 Time of Evaluation: 13:00 - Subjective Subjective: Infectious Disease Follow Up: August 10, 2017 76 yo female with cough and fever at retirement. Fever as high as 101.6 F at retirement. Fever of 103.0 F here at [facility] [place]. Patient tested positive for Influenza A. Started on Tamiflu for treatment at this time. The patient placed under respiratory isolation. Patient does have a history of Dementia and Alzheimer's. Patient temperature of 100.3 F today. Urine cultures with E. coli growth sensitive to Cefepime but resistant to base PCN and Fluoroquinolones. Still low grade fevers today. On Cefepime currently. Nearing completion of Tamiflu Afebrile today Objective - Vital Signs/Intake and Output Vital Signs (last 24 hours): Temp Pulse Resp BP Pulse Ox 98.8 F 87 20 138/81 98 08/10/17 08:57 08/10/17 08:57 08/10/17 08:57 08/10/17 08:57 08/10/17 08:57 Intake and Output: 08/10/17 08/10/17 06:59 18:59 Intake Total 300 0 Balance 300 0 - Medications Medications: Current Medications Acetaminophen (Tylenol 325mg Tab) 650 mg PO Q6H PRN PRN Reason: Fever >100.4 F Last Admin: 08/09/17 18:07 Dose: 650 mg Alendronate Sodium (Fosamax) 70 mg PO Q7D@0600 [facility] Calcium Carbonate (Caltrate) 600 mg PO BID [facility] Last Admin: 08/10/17 09:54 Dose: 600 mg Cephalexin Monohydrate (Keflex) 500 mg PO BID [facility] PRN Reason: Protocol Stop: 08/16/17 10:01 Famotidine (Pepcid) 20 mg PO DAILY [facility] Last Admin: 08/10/17 09:55 Dose: 20 mg Sodium Chloride (Sodium Chloride 0.9%) 1,000 mls @ 150 mls/hr IV .Q6H40M [facility] Last Admin: 08/09/17 19:52 Dose: 150 mls/hr Magnesium Hydroxide (Milk Of Magnesia) 30 ml PO PRN PRN Reason: Constipation Memantine (Namenda) 5 mg PO DAILY [facility] Last Admin: 08/10/17 09:55 Dose: 5 mg Multivitamins (Thera Tab) 1 tab PO 0800 [facility] Last Admin: 08/10/17 09:55 Dose: 1 tab Oseltamivir Phosphate (Tamiflu Cap) 75 mg PO BID [facility] PRN Reason: Protocol Stop: 08/12/17 16:12 Last Admin: 08/10/17 09:55 Dose: 75 mg Potassium Chloride (K-Dur 20 Meq Er Tab) 20 meq PO BRK [facility] Last Admin: 08/10/17 08:55 Dose: 20 meq - Labs Labs: 08/09/17 06:00 08/09/17 06:00 PT 13.7 SECONDS (9.4-12.5) H 08/07/17 02:30 INR 1.20 (0.93-1.08) H 08/07/17 02:30 APTT 31.9 Seconds (25.1-36.5) 08/07/17 02:30 - Constitutional Appears: Non-toxic, No Acute Distress, Chronically Ill - Head Exam Head Exam: ATRAUMATIC, NORMOCEPHALIC - Eye Exam Eye Exam: EOMI, PERRL - ENT Exam ENT Exam: Mucous Membranes Moist, Normal External Ear Exam, TM's Normal Bilaterally - Neck Exam Neck Exam: Full ROM, Normal Inspection - Respiratory Exam Respiratory Exam: Clear to Ausculation Bilateral, NORMAL BREATHING PATTERN. absent: Rales, Rhonchi, Wheezes - Cardiovascular Exam Cardiovascular Exam: REGULAR RHYTHM, RRR, +S1, +S2 - GI/Abdominal Exam GI & Abdominal Exam: Soft, Normal Bowel Sounds. absent: Distended, Tenderness - Extremities Exam Extremities Exam: Full ROM, Normal Inspection - Neurological Exam Neurological Exam: Alert, Awake, CN II-XII Intact, Oriented x3 - Psychiatric Exam Psychiatric exam: Normal Affect, Normal Mood - Skin Skin Exam: Intact, Normal Color Assessment and Plan - Assessment and Plan (Free Text) Assessment: 76 yo AA female with tachycardia, SOB, fevers up to 103 F. Patient was found to be Influenza A positive. Started on Tamiflu. Requires 5 days of Tamiflu treatment. Question of UTI and awaiting urine culture results. E. coli growth on urine cultures. Continue with Cefepime 1gm IV q12hrs given results. Supportive care. Afebrile now. Urine culture results showing a gram negative tram identified as E. coli. On Cefepime at this time. Nearing completion of Tamiflu. Thank you for allowing me to participate in the care of the patient, we will follow with you.
== END 2017-08-10 14:46 | DRG 194 ==
LOC: ED 23:41 → ERH 08-07 07:16 → 5RSO 08-07 09:27 → 3RNO 08-07 20:23
PROVIDERS: ADMIT Internal Medicine; ATTEND Internal Medicine
DX: J10.1 Influenza due to other identified influenza virus with other respiratory manifestations (principal); N39.0 Urinary tract infection, site not specified; G30.9 Alzheimer's disease, unspecified; E83.39 Other disorders of phosphorus metabolism; F20.0 Paranoid schizophrenia; E83.52 Hypercalcemia; F02.80 Dementia in other diseases classified elsewhere, unspecified severity, without behavioral disturbance, psychotic disturbance, mood disturbance, and anxiety; B35.1 Tinea unguium; E87.6 Hypokalemia; B96.20 Unspecified Escherichia coli [E. coli] as the cause of diseases classified elsewhere; I10 Essential (primary) hypertension; I73.9 Peripheral vascular disease, unspecified; K21.9 Gastro-esophageal reflux disease without esophagitis; M81.0 Age-related osteoporosis without current pathological fracture; Z78.9 Other specified health status; Z87.440 Personal history of urinary (tract) infections; Z87.891 Personal history of nicotine dependence; Z90.49 Acquired absence of other specified parts of digestive tract; R40.2412 Glasgow coma scale score 13-15, at arrival to emergency department; M19.90 Unspecified osteoarthritis, unspecified site; R80.9 Proteinuria, unspecified

== ENCOUNTER 2018-09-03 11:11 | Outpatient (CLI) | payer MEDICARE, MEDICAID | END 2018-09-03 11:12 | disposition home or self-care (01) | LOC: RAD 11:12 ==